=== PATIENT | female | born 1960 | race Caucasian/White ===

== ENCOUNTER 2019-02-16 05:56 | Inpatient (IN) ==
[2019-02-16] MEDS ORDERED: DEXAMETHASONE 4 MG/1 ML VIAL ONE (06:18)
[2019-02-16] MEDS ORDERED: ROPIVACAINE 0.5% 30 ML VIAL ONE (06:18)
[2019-02-16] MEDS ORDERED: MIDAZOLAM 2 MG/2 ML VIAL ONE ×3 (06:18→10:02)
[2019-02-16] MEDS ORDERED: LIDOCAINE 1% 5 ML VIAL ONE (06:18)
[2019-02-16] MEDS ORDERED: GABAPENTIN 400 MG CAPSULE ONE (06:35)
[2019-02-16] MEDS ORDERED: ACETAMINOPHEN 500 MG TABLET ONE (06:35)
[2019-02-16] MEDS ORDERED: GABAPENTIN 400 MG CAPSULE PO ONE (06:37)
[2019-02-16] MEDS ORDERED: ACETAMINOPHEN 500 MG TABLET PO ONE (06:37)
[2019-02-16] MEDS ORDERED: VANCOMYCIN 1,000 MG VIAL ONE (06:44)
[2019-02-16] MEDS ORDERED: LACTATED RINGERS 1,000 ML IV SCH (07:00)
[2019-02-16] MEDS ORDERED: VANCOMYCIN INJ 1,000 MG in SODIUM CHLORIDE 0.9% 250 ML IV ONE (07:00)
[2019-02-16] MEDS ORDERED: BUPIVACAINE SPINAL 0.75% 2 ML AMP SPINAL ONE (10:00)
[2019-02-16] MEDS ORDERED: propofoL 200 MG/20 ML VIAL IV ONE (10:00)
[2019-02-16] MEDS ORDERED: fentaNYL 100 MCG/2 ML VIAL ONE (10:00)
[2019-02-16] MEDS ORDERED: ONDANSETRON 4 MG/2 ML VIAL ONE (10:01)
[2019-02-16] MEDS ORDERED: SODIUM CHLORIDE 0.9% 500 ML IV ONE (10:01)
[2019-02-16] MEDS ORDERED: TRANEXAMIC ACID 1,000 MG/10 ML VIAL ONE (10:01)
[2019-02-16] MEDS ORDERED: ePHEDrine 50 MG/ML AMP ONE (10:01)
[2019-02-16] MEDS ORDERED: PHENYLEPHRINE 1 MG/10 ML SYRINGE IV ONE (10:01)
[2019-02-16] MEDS ORDERED: LACTATED RINGERS 1,000 ML IV ONE (10:01)
[2019-02-16] MEDS ORDERED: SODIUM CHLORIDE 0.9% 100 ML IV ONE (10:01)
[2019-02-16] MEDS ORDERED: ceFAZolin 1,000 MG VIAL ONE (10:02)
[2019-02-16 11:55] LABS: Basophils % 0.2 % (0.0-0.8); Eosinophils % 0.3 % (0.00-10.9); Hematocrit 39.8 VOL% (35.7-47.0); Hemoglobin 12.9 GM/DL (12.0-16.0); Immature Granulocytes % 0.5 %; Immature Granulocytes Absolute 0.03 #; Lymphocytes # 0.7 10*3/uL (1.4-4.0); Mean Corpuscular HGB Conc 32.4 GM/DL (32-36); Mean Platelet Volume 10.1 FL (9.6-12.0); Monocytes % 1.9 % (1.7-12.7); Neutrophils % 86.1 % (38.7-73.9); Platelet Count 126 T/CUMM (130-400); Red Blood Count 4.28 MC/CUMM (3.8-5.5); Red Cell Distribution Width 12.8 % (9.3-17.3); White Blood Count 6.3 T/CUMM (4-12)
[2019-02-16 12:11] LABS: Calcium 8.7 MG/DL (8.5-10.1); Osmolality,Calculated 286.8 MOS/KG (273-304)
[2019-02-16] MEDS: APIXABAN 2.5 MG TABLET PO SCH (20:52)
[2019-02-16] MEDS: CETIRIZINE 10 MG TABLET PO SCH (20:52)
[2019-02-16] MEDS: DIPYRIDAMOLE/ASPIRIN 200-25 MG CAPSULE PO SCH (20:52)
[2019-02-16] MEDS: ROSUVASTATIN 20 MG TABLET PO SCH (20:52)
[2019-02-16] MEDS: MONTELUKAST 10 MG TABLET PO SCH (20:52)
[2019-02-17] MEDS: MEPERIDINE 50 MG/1 ML VIAL IV PRN ×2 (00:55→06:22)
[2019-02-17] MEDS ORDERED: NON-FORMULARY MEDICATION (Cyanocobalamin (Vitamin B-12) [Vitamin B-12] 2,500 MCG) SL SCH (09:00)
[2019-02-17] MEDS ORDERED: NON-FORMULARY MEDICATION (Biotin 10,000 MCG) PO SCH (09:00)
[2019-02-17] MEDS: CHOLECALCIFEROL 5,000 UNIT TABLET PO SCH (09:42)
[2019-02-17] MEDS: APIXABAN 2.5 MG TABLET PO SCH ×2 (09:43→21:32)
[2019-02-17] MEDS: CITALOPRAM 20 MG TABLET PO SCH (09:43)
[2019-02-17] MEDS: DIPYRIDAMOLE/ASPIRIN 200-25 MG CAPSULE PO SCH ×2 (09:43→21:33)
[2019-02-17] MEDS: MULTIVITAMIN (CENTRUM) TABLET PO SCH (09:43)
[2019-02-17] MEDS: CALCIUM (CARBONATE) 500 MG TABLET PO SCH (09:43)
[2019-02-17] MEDS: CETIRIZINE 10 MG TABLET PO SCH (21:32)
[2019-02-17] MEDS: ROSUVASTATIN 20 MG TABLET PO SCH (21:32)
[2019-02-17] MEDS: MONTELUKAST 10 MG TABLET PO SCH (21:33)
[2019-02-18] MEDS: MEPERIDINE 50 MG/1 ML VIAL IV PRN (01:51)
[2019-02-18 07:45] VITALS: BP 126/61
[2019-02-18] MEDS: APIXABAN 2.5 MG TABLET PO SCH (09:06)
[2019-02-18] MEDS: DIPYRIDAMOLE/ASPIRIN 200-25 MG CAPSULE PO SCH (09:06)
[2019-02-18] MEDS: MULTIVITAMIN (CENTRUM) TABLET PO SCH (09:06)
[2019-02-18] MEDS: CHOLECALCIFEROL 5,000 UNIT TABLET PO SCH (09:07)
[2019-02-18] MEDS: CITALOPRAM 20 MG TABLET PO SCH (09:07)
[2019-02-18] MEDS: CALCIUM (CARBONATE) 500 MG TABLET PO SCH (09:28)
== END 2019-02-18 11:42 | disposition home health service (06) | DRG 468 ==
LOC: N.SDSINP 05:56 → N.OR 05:56 → N.SDSINP 05:57 → N.3E 10:45
PROVIDERS: ADMIT Orthopaedic Surgery; ATTEND Orthopaedic Surgery